=== PATIENT | male | born 1985 | race Caucasian/White ===

== ENCOUNTER 2020-12-31 14:50 | Observation (INO) | payer BC ==
[~2020-12-31] VITALS: Ht 193 cm; Wt 90.7 kg
[2020-12-31 16:02] LABS: HEMOGLOBIN 17.6 gm/dl (14.0-17.5); RED BLOOD COUNT 5.63 M/UL (4.20-5.50); WHITE BLOOD COUNT 20.9 K/UL (4.5-11.0)
[2021-01-01 04:06] LABS: HEMOGLOBIN 12.7 gm/dl (14.0-17.5); RED BLOOD COUNT 4.23 M/UL (4.20-5.50)
[2021-01-01 04:28] LABS: BUN/CREATININE RATIO 24 (0-10)
[2021-01-01] MEDS ORDERED: PROAIR HFA8.5 GM INH (11:37)
== END 2021-01-01 13:45 | disposition home or self-care (01) ==
LOC: ER1 14:50 → CDU 17:48 → MED SURG 4 18:45
PROVIDERS: Emergency Medicine; Physician Assistant; ADMIT Internal Medicine
DX: E86.1 Hypovolemia (principal); N17.9 Acute kidney failure, unspecified; E86.0 Dehydration; E87.6 Hypokalemia; J20.9 Acute bronchitis, unspecified; D72.829 Elevated white blood cell count, unspecified; D75.1 Secondary polycythemia; T79.6XXA Traumatic ischemia of muscle, initial encounter; Z20.822 Contact with and (suspected) exposure to COVID-19; X50.0XXA Overexertion from strenuous movement or load, initial encounter
CPT/HCPCS: 36415; 71046; 80048; 80053; 81001; 82550; 82553; 82570; 83605; 83735; 84156; 84484; 85025; 99284; G0378; J7030; U0002